=== PATIENT | female | born 2000 ===

== ENCOUNTER 2020-12-15 17:33 | Emergency (ER) | payer OTHER, SELFPAY ==
[~2020-12-15] VITALS: Ht 162.6 cm; Wt 60.8 kg
[2020-12-15 17:33] VITALS: BP 107/55
[2020-12-18] MEDS ORDERED: METOCLOPRAMIDE HCL 5MG/ml INJ 2ml VIAL ONE (12:11)
== END 2020-12-15 21:13 | disposition home or self-care (01) ==
LOC: ER 17:33
DX: R11.2 Nausea with vomiting, unspecified (principal); J02.9 Acute pharyngitis, unspecified; Z20.822 Contact with and (suspected) exposure to COVID-19
CPT/HCPCS: 36415; 87426